=== PATIENT | female | born 1930 | race Caucasian/White ===

== ENCOUNTER 2016-12-13 15:04 | Inpatient (IN) ==
--- NOTE | 2016-12-13 17:56 | Diag Imaging Result Doc PS360 ---
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 There is a hiatal hernia. There are postsurgical changes in the right upper chest. Compared to the previous study of 11/17/2015 this has not changed significantly. IMPRESSION: Stable chest. Electronically signed by Ryder Jamil 12/13/2016 5:54 PM
[2016-12-13] MEDS ORDERED: DUONEB (A & A) INH PRN (18:13)
[2016-12-13] MEDS ORDERED: ZOFRAN IV PRN (18:13)
[2016-12-13] MEDS ORDERED: TYLENOL PO PRN ×2 (18:13→18:15)
[2016-12-13] MEDS ORDERED: VOLTAREN 1% GEL TOP PRN (18:15)
[2016-12-13 18:19] LABS: MANUAL DIFF NEEDED? NO
[2016-12-13 18:23] LABS: BASO% 0.4 % (0.0-0.8); EOS# 0.09 X1000 (0.0-0.7); EOS% 0.9 % (0.0-10.0); HEMATOCRIT 34.4 % (37.0-47.0); HEMOGLOBIN 10.9 g/dL (12.0-16.0); IMM GRAN# 0.08 X1000 (0.0-0.04); IMM GRAN% 0.8 % (0.0-0.5); LYMPH# 2.54 X1000 (1.2-3.4); LYMPH% 24.3 % (20.5-51.1); MCH 28.8 PG (27-31); MCHC 31.7 g/dL (33-37); MCV 90.8 FL (81-99); MONO# 0.69 X1000 (0.11-0.59); MONO% 6.6 % (1.7-9.3); MPV 9.9 FL (7.4-10.4); PLT 250 X1000 (130-400); RBC 3.79 XMIL (4.2-5.4)
[2016-12-13 18:47] LABS: AGAP 9; ALBUMIN 3.5 g/dL (3.5-5.0); ALKALINE PHOSPHATASE 103 U/L (32-104); BUN 17 mg/dL (8-22); CALCIUM 9.3 mg/dL (8.8-10.2); CHLORIDE 99 mmol/L (98-107); COSMO 272; GOT 9 U/L (10-30); GPT 6 U/L (10-36); POTASSIUM 4.3 mmol/L (3.5-5.1); SODIUM 135 mmol/L (136-145); TCO2 27 mmol/L (25-35); TOTAL BILIRUBIN < 0.15 mg/dL (0.20-1.00); TOTAL PROTEIN 6.4 g/dL (6.3-8.3)
[2016-12-13] MEDS: DUONEB (A & A) INH SCH ×2 (19:16→23:50)
[2016-12-13] MEDS ORDERED: DOXYCYCLINE 100 MG in NS 250 ML IV SCH (20:00)
[2016-12-13] MEDS ORDERED: CARAFATE PO SCH (21:00)
[2016-12-13] MEDS: ELIQUIS PO SCH (21:05)
[2016-12-13] MEDS: MIRAPEX PO SCH (21:05)
[2016-12-13] MEDS: ULTRAM PO SCH (21:05)
[2016-12-13] MEDS: CYMBALTA PO SCH (21:06)
[2016-12-13] MEDS: ZOCOR PO SCH (21:06)
[2016-12-13] MEDS: KLONOPIN PO SCH (21:06)
[2016-12-13] MEDS: SINEMET 25/100 PO SCH (21:06)
[2016-12-13] MEDS: ROCEPHIN 1 GM/NS 1 GM/50 ML IVPB IV SCH ×3 (22:42→23:42)
[2016-12-13] MEDS: NS 1,000 ML IV SCH ×3 (22:42→23:43)
[2016-12-14] MEDS: DUONEB (A & A) INH SCH ×6 (03:44→23:29)
[2016-12-14 05:05] LABS: MANUAL DIFF NEEDED? NO
[2016-12-14] MEDS: SINEMET 25/100 PO SCH ×3 (05:25→21:14)
[2016-12-14] MEDS: ELIQUIS PO SCH ×2 (05:25→17:57)
[2016-12-14 05:35] LABS: BASO% 0.3 % (0.0-0.8); EOS# 0.11 X1000 (0.0-0.7); EOS% 1.9 % (0.0-10.0); HEMATOCRIT 30.7 % (37.0-47.0); HEMOGLOBIN 9.6 g/dL (12.0-16.0); IMM GRAN# 0.06 X1000 (0.0-0.04); LYMPH# 2.08 X1000 (1.2-3.4); LYMPH% 36.4 % (20.5-51.1); MCH 28.2 PG (27-31); MCHC 31.3 g/dL (33-37); MCV 90.3 FL (81-99); MONO# 0.57 X1000 (0.11-0.59); MPV 9.8 FL (7.4-10.4); NEUT% 50.4 % (42.2-75.2); PLT 217 X1000 (130-400)
[2016-12-14 05:59] LABS: AGAP 8; ALKALINE PHOSPHATASE 80 U/L (32-104); BUN 13 mg/dL (8-22); CALCIUM 8.8 mg/dL (8.8-10.2); CHLORIDE 106 mmol/L (98-107); COSMO 280; GOT 7 U/L (10-30); GPT < 5 U/L (10-36); MAGNESIUM 2.2 mg/dL (1.5-2.7); POTASSIUM 3.7 mmol/L (3.5-5.1); SODIUM 140 mmol/L (136-145); TCO2 26 mmol/L (25-35); TOTAL BILIRUBIN < 0.15 mg/dL (0.20-1.00); TOTAL PROTEIN 5.3 g/dL (6.3-8.3)
[2016-12-14] MEDS ORDERED: DOXYCYCLINE 100 MG in NS 250 ML IV SCH (07:51)
--- NOTE | 2016-12-14 08:24 | PROGRESS NOTE ---
DATE: 12/14/2016 SUBJECTIVE: Patient notes that she is feeling a little bit better. Still having cough, congestion, sometimes productive. Denies any chest pain or palpitations. PHYSICAL EXAMINATION: Vital Signs: Temperature 98, pulse 79, respiratory rate 18, BP 143/73 to 188/87, saturation 100% on room air. General: Patient is awake, alert, currently in no real respiratory distress. She is pleasant to talk with. Lying flat in the bed. She is in mild respiratory distress with a productive cough. HEENT: Normocephalic, atraumatic. KAYLIN. Neck: Supple. CV: Regular rate. Chest: Positive rhonchi. Occasional wheezing. No crackles. Abdomen: Soft and nondistended. Extremities: Moves all extremities. Neurologic: No changes. ASSESSMENT: 1. Chronic obstructive pulmonary disease with mild exacerbation. 2. Acute bronchitis. 3. Hypertension. 4. Chronic anxiety and depression. 5. Restless legs. 6. High cholesterol. PLAN: We will continue patient's current medications. We will add Acapella treatments. We will change doxycycline to p.o. at this point. We will add Solu-Medrol and we will follow. cc: Romero Davis MD
[2016-12-14] MEDS: SOLU-MEDROL IV SCH ×2 (08:58→16:16)
[2016-12-14] MEDS: VITAMIN D PO SCH (08:58)
[2016-12-14] MEDS: DOXYCYCLINE PO SCH ×2 (08:59→21:14)
[2016-12-14] MEDS: LOPRESSOR PO SCH (08:59)
[2016-12-14] MEDS: CARAFATE PO SCH ×4 (08:59→21:14)
[2016-12-14] MEDS: PRILOSEC PO SCH (08:59)
[2016-12-14] MEDS: CYMBALTA PO SCH ×2 (08:59→21:14)
[2016-12-14] MEDS: ICAR-C PLUS PO SCH (08:59)
[2016-12-14] MEDS: ABILIFY PO SCH (08:59)
[2016-12-14] MEDS: ASPIRIN PO SCH (09:00)
[2016-12-14] MEDS: ULTRAM PO SCH ×2 (09:00→21:14)
[2016-12-14] MEDS: KLONOPIN PO SCH ×2 (09:00→21:14)
[2016-12-14] MEDS: NS 1,000 ML IV SCH ×2 (09:11→14:18)
[2016-12-14 14:57] LABS: URINE CULTURE PL NEEDED? NO
[2016-12-14 15:19] LABS: BILIRUBIN URINE NEGATIVE (NEGATIVE); BLOOD URINE NEGATIVE (NEGATIVE); CLARITY CLEAR (CLEAR); COLOR YELLOW; GLUCOSE URINE NEGATIVE (NEGATIVE); LEUKOCYTES URINE NEGATIVE (NEGATIVE); NITRITE URINE NEGATIVE (NEGATIVE); PH URINE 6.5; PROTEIN URINE NEGATIVE (NEGATIVE); SP GRAVITY URINE 1.005; URINE SOURCE CLEAN CATCH; UROBILINOGEN URINE NORMAL
[2016-12-14 15:20] LABS: URINE EPITHELIAL CELLS <10 /HPF (<10); URINE RBC <10 /HPF (<10); URINE WBC <10 /HPF (<10)
[2016-12-14] MEDS: ROCEPHIN 1 GM/NS 1 GM/50 ML IVPB IV SCH (17:57)
[2016-12-14] MEDS: ZOCOR PO SCH (21:14)
[2016-12-14] MEDS: MIRAPEX PO SCH (21:14)
[2016-12-15] MEDS: SOLU-MEDROL IV SCH ×3 (01:02→15:28)
[2016-12-15] MEDS: DUONEB (A & A) INH SCH ×4 (03:39→15:22)
[2016-12-15] MEDS: NS 1,000 ML IV SCH (04:35)
[2016-12-15] MEDS: PRILOSEC PO SCH (06:34)
[2016-12-15] MEDS: CARAFATE PO SCH ×3 (06:34→15:29)
[2016-12-15] MEDS: ELIQUIS PO SCH (06:34)
[2016-12-15] MEDS: SINEMET 25/100 PO SCH ×2 (06:34→15:28)
--- NOTE | 2016-12-15 08:21 | DISCHARGE SUMMARY ---
ADMISSION DATE: 12/13/2016 DISCHARGE DATE: 12/15/2016 DISCHARGE DIAGNOSES: 1. Shortness of breath, improved. 2. Chronic obstructive pulmonary disease with exacerbation, improved. 3. Anemia of chronic disease, stable. 4. Chronic anxiety. 5. Chronic depression. 6. Chronic reflux. 7. High cholesterol. CONSULTATIONS: None. PROCEDURES: None. BRIEF HOSPITAL COURSE: The patient is an 86-year-old female who was admitted as noted in the HPI, treated in the usual fashion. Thankfully, she had an uneventful hospital course. She was placed on antibiotics, steroids, oxygen, breathing treatments. She continued to improve. On discharge, she was awake, alert. She was in no real distress. She was able to ambulate the gallardo without much difficulty DISPOSITION: The patient will be discharged home. DISCHARGE MEDICATIONS: She will continue her home medications of: 1. Eliquis 5 mg twice a day. 2. Abilify. 3. Sinemet. 4. Klonopin. 5. Cymbalta. 6. Metoprolol. 7. Mirapex. 8. Zocor. She will go home on: 1. Medrol Dosepak. 2. Doxycycline 100 mg twice a day for another 7 days. 3. Omnicef. FOLLOWUP: She will follow up outpatient with primary care in 1 week. cc: Romero Davis MD
[2016-12-15] MEDS: ULTRAM PO SCH (09:15)
[2016-12-15] MEDS: KLONOPIN PO SCH (09:15)
[2016-12-15] MEDS: CYMBALTA PO SCH (09:16)
[2016-12-15] MEDS: ABILIFY PO SCH (09:16)
[2016-12-15] MEDS: LOPRESSOR PO SCH (09:16)
[2016-12-15] MEDS: DOXYCYCLINE PO SCH (09:16)
[2016-12-15] MEDS: ASPIRIN PO SCH (09:16)
[2016-12-15] MEDS: ICAR-C PLUS PO SCH (09:16)
[2016-12-15] MEDS: VITAMIN D PO SCH (09:16)
[2016-12-15 09:24] VITALS: BP 133/62
--- NOTE | 2016-12-19 17:03 | HISTORY AND PHYSICAL ---
CHIEF COMPLAINT: Cough. HISTORY OF PRESENT ILLNESS: The patient is an 86-year-old female who has a known recent history of pneumonia. She presented to the clinic with increased cough, congestion. Notes that she has been taking antibiotics, but this had not been helpful. States the cough has continued to worsen. She has had increased shortness of breath, increased dyspnea on exertion. Denies any true fevers or chills. States she has had a nonproductive cough. Does wake her up at night. PAST MEDICAL HISTORY: Significant for: 1. Artificial pig valve, replaced a few years ago for aortic stenosis. 2. Left total knee arthroscopy. 3. Status post cholecystectomy in the past. 4. Hysterectomy. 5. Tonsillectomy. 6. Hypertension. 7. High cholesterol. 8. Hypothyroidism. ALLERGIES: Sulfa. MEDICATIONS: I do not have a complete active list, although she is on: 1. Eliquis. 2. Sinemet. 3. Cymbalta. 4. Hydrocodone. 5. Zocor. 6. Prilosec. 7. Synthroid. We will confirm doses when pharmacy opens. FAMILY HISTORY: Noncontributory. SOCIAL HISTORY: The patient lives at home. Her primary care is at [facility]. REVIEW OF SYSTEMS: As noted above. Positive increased cough, congestion, increased shortness of breath, increased work of breathing. Denies any true fevers or chills. Denies any orthopnea. Denies edema. Denies dysuria. No frequency, constipation, melena, or hematochezia. OBJECTIVE: Vital Signs: Reviewed. General: She is awake, alert, oriented. She is in mild respiratory distress. Pleasant to talk with. Neck: Supple. Cardiovascular: Regular rate. Chest: Decreased breath sounds, but equal bilaterally. No apparent wheezing. Abdomen: Soft. Positive bowel sounds. Extremities: Moves all extremities. Neurologic: No focal changes. Skin: Warm and dry. No rashes. DIAGNOSTIC DATA: Pending. ASSESSMENT: 1. Pneumonia. 2. Hypertension. 3. Chronic obstructive pulmonary disease with exacerbation. 4. Hypothyroidism. 5. Parkinson's. 6. Depression. 7. Others. PLAN: We will admit the patient to the hospital. IV fluids, antibiotics, breathing treatments. We will continue to follow. Further orders as needed. cc: Romero Davis MD
== END 2016-12-15 15:45 | disposition home health service (06) ==
LOC: P.DIRADM 15:04 → P.MEDSURG 15:53
PROVIDERS: ATTEND Family Medicine

== ENCOUNTER 2017-01-06 08:38 | Inpatient (IN) ==
[2017-01-06] MEDS ORDERED: NS 1,000 ML IV ONE ×2 (09:10→19:55)
[2017-01-06] MEDS ORDERED: ZOFRAN IV ONE (09:10)
--- NOTE | 2017-01-06 09:43 | ED EKG INTERP ---
This chart was entered by Brenda Marin Scribe, acting as scribe for Octavio Piedra MD. EKG Interpretation - EKG Time of EKG reading by physician:: 09:04 EKG Read and Signed by:: Octavio Piedra EKG Interpretation (*Must complete 3 of following elements*): Normal (sinus rhythm with premature atrial complexes; OTHERWISE NORMAL) Rate: 82 Rhythm: Sinus rhythm with premature atrial complexes [place]: normal Attestation - Physician/ KENNY Attestation Patient care was provided by Advanced Practice Provider:: No The physician spent face to face time with patient:: Yes Advanced Practice Provider documentation review:: Supervising physician onsite and consulted in the evaluation and care of this patient. The physician did have a face to face encounter with the patient. This chart was documented by the indicated scribe, (Brenda Marin Scribe) and accurately reflects the services I performed and decisions made by me, Octavio Piedra MD, as attested by the provider's signature.
[2017-01-06 09:56] LABS: MANUAL DIFF NEEDED? NO
--- NOTE | 2017-01-06 10:02 | Diag Imaging Result Doc PS360 ---
FLAT/UPRIGHT ABD/1 VIEW CHEST - 01/06/2017 INDICATION: CP/Abd pain TECHNIQUE: Three views COMPARISON: 12/13/2016 FINDINGS: Stable aortic valve prosthesis. Stable surgical clips in the right axilla. Heart size is top normal. No focal infiltrates, pneumothorax, or pleural effusion. There is a large chunk of stool in the right colon. This measures 16 x 10 cm. No small bowel obstruction or free air. No abnormal calcifications. There are cholecystectomy clips. IMPRESSION: Fecal impaction of the ascending colon. Electronically signed by Reza Wheeler 01/06/2017 9:59 AM
[2017-01-06 10:18] LABS: AMYLASE 56 U/L (20-200); LIPASE 29 U/L (13-60)
--- NOTE | 2017-01-06 10:18 | EKG Report ---
Test Performed on : 01/06/2017 09:04:39 AM Test Reason : cp Blood Pressure : / mmHG Vent. Rate : 082 BPM Atrial Rate : 082 BPM P-R Int : 154 ms QRS Dur : 082 ms QT Int : 380 ms P-R-T Axes : -27 049 079 degrees QTc Int : 443 ms Sinus rhythm. with premature atrial complexes. Otherwise normal ECG When compared with ECG of 17-NOV-2015 12:09, premature atrial complexes. are now present Unconfirmed Result
[2017-01-06 10:21] LABS: BASO% 0.8 % (0.0-0.8); EOS# 0.26 X1000 (0.0-0.7); EOS% 5.2 % (0.0-10.0); HEMATOCRIT 19.4 % (37.0-47.0); IMM GRAN# 0.08 X1000 (0.0-0.04); IMM GRAN% 1.6 % (0.0-0.5); LYMPH# 1.22 X1000 (1.2-3.4); LYMPH% 24.4 % (20.5-51.1); MCH 28.4 PG (27-31); MCHC 30.9 g/dL (33-37); MCV 91.9 FL (81-99); MONO# 0.42 X1000 (0.11-0.59); MONO% 8.4 % (1.7-9.3); MPV 9.7 FL (7.4-10.4); NEUT% 59.6 % (42.2-75.2); PLT 276 X1000 (130-400); RBC 2.11 XMIL (4.2-5.4)
[2017-01-06] MEDS ORDERED: ZOFRAN ONE (11:36)
[2017-01-06 11:51] LABS: OCCULT BLOOD 1 POSITIVE (NEGATIVE)
[2017-01-06 12:39] LABS: POTASSIUM 3.7 mmol/L (3.5-5.1); SODIUM 134 mmol/L (136-145)
[2017-01-06 12:40] LABS: AGAP 14; ALBUMIN 3.5 g/dL (3.5-5.0); ALKALINE PHOSPHATASE 91 U/L (32-104); BUN 11 mg/dL (8-22); CALCIUM 8.8 mg/dL (8.8-10.2); CHLORIDE 98 mmol/L (98-107); COSMO 267; GOT 9 U/L (10-30); GPT 6 U/L (10-36); TCO2 23 mmol/L (25-35)
[2017-01-06 12:54] LABS: URINE CULTURE PL NEEDED? NO
[2017-01-06 13:08] LABS: BILIRUBIN URINE NEGATIVE (NEGATIVE); BLOOD URINE NEGATIVE (NEGATIVE); CLARITY CLEAR (CLEAR); COLOR YELLOW; GLUCOSE URINE NEGATIVE (NEGATIVE); LEUKOCYTES URINE NEGATIVE (NEGATIVE); NITRITE URINE NEGATIVE (NEGATIVE); PROTEIN URINE NEGATIVE (NEGATIVE); UROBILINOGEN URINE NORMAL
[2017-01-06 13:11] LABS: URINE CAST NONE SEEN /LPF; URINE CRYSTAL NONE SEEN /HPF; URINE EPITHELIAL CELLS <10 /HPF (<10); URINE RBC <10 /HPF (<10); URINE SOURCE CLEAN CATCH; URINE WBC <10 /HPF (<10)
--- NOTE | 2017-01-06 13:28 | Diag Imaging Result Doc PS360 ---
CT ABD/PELVIS W/ IV CONT ONLY - 01/06/2017 INDICATION: Abd pain with anemia TECHNIQUE: A CT dose reduction protocol was used. COMPARISON: None FINDINGS: There are hazy patchy infiltrates in the lung bases, nonspecific. There is also COPD. There is an aortic valve replacement. There is cardiomegaly. There are cholecystectomy clips. The solid abdominal organs are normal. No bowel obstruction or inflammation. Moderate constipation of the proximal colon. There is significant diverticulosis of the sigmoid colon. Urinary bladder and rectum are normal. There are laminectomy and fusion changes of the lower lumbar spine. There is advanced scoliosis and degeneration. No acute bony lesions. IMPRESSION: 1. Cardiomegaly and nonspecific hazy infiltrates in the lung bases. Pulmonary edema is suspected. 2. Diverticulosis coli. 3. Constipation. Electronically signed by Reza Wheeler 01/06/2017 1:25 PM
--- NOTE | 2017-01-06 13:42 | PROVIDER DOCUMENTATION ---
This chart was entered by Brenda Marin Scribe, acting as scribe for Octavio Piedra MD. HPI-General Adult - General Chief Complaint: Weakness Stated Complaint: WEAKNESS Time Seen by Provider: 01/06/17 08:52 Source: patient, family Allergies/Adverse Reactions: Patient Allergies Allergy/AdvReac Type Severity Reaction Status Date / Time Sulfa (Sulfonamide Allergy HIVES Verified 01/06/17 08:47 Antibiotics) Home Medications: Home Medication List Medication Instructions Recorded Confirmed Last Taken Type Aripiprazole [Abilify] 5 mg PO DAILY 10/04/13 12/13/16 12/13/16 09:00 History Carbidopa/Levodopa [Carbidopa-Levo 1 each PO TID 04/10/14 12/13/16 12/13/16 09: 00 History 25-100 Tab] Clonazepam [Klonopin] 0.5 mg PO BID 11/17/15 12/13/16 12/13/16 09:00 History Duloxetine HCl [Cymbalta] 30 mg PO BID 11/17/15 12/13/16 12/13/16 09:00 History Omeprazole 40 mg PO DAILY 11/17/15 12/13/16 12/13/16 09:00 History SIMVAstatin [Zocor] 10 mg PO QHS 11/17/15 12/13/16 12/12/16 21:00 History Iron Carbonyl/Vit C/Vit B12/FA 1 each PO DAILY #30 tablet 11/18/15 12/13/1611/22 09:00 Rx [Icar-C Plus] Acetaminophen [Tylenol Extra 500 mg PO Q6H PRN PRN 04/29/16 12/13/16 Unknown History Strength] Apixaban [Eliquis] 5 mg PO Q12H 04/29/16 12/13/16 12/13/16 09:00 History Aspirin 81 mg PO DAILY 04/29/16 12/13/16 12/13/16 09:00 History Cholecalciferol (Vitamin D3) 5,000 unit PO DAILY 04/29/16 12/13/16 12/13/16 09: 00 History [Vitamin D3] Diclofenac 1% Gel [Voltaren 1% Gel] 2 g TOP Q6H PRN PRN 04/29/16 12/13/16 Unknown History Metoprolol [Lopressor] 25 mg PO DAILY #30 tablet 04/29/16 12/13/16 12/13/16 09: 00 Rx Pramipexole [Mirapex] 0.5 mg PO QHS 04/29/16 12/13/16 12/12/16 21:00 History Sucralfate [Carafate] 1 gm PO 4XDAY 04/29/16 12/13/16 Unknown History Tramadol HCl [Ultram] 50 mg PO BID 04/29/16 12/13/16 12/13/16 09:00 History CefDINIR [Omnicef] 300 mg PO BID #10 capsule 12/15/16 Unknown Rx Doxycycline 100 mg PO BID #10 tablet 12/15/16 Unknown Rx Methylprednisolone [Medrol Dosepak] 4 mg PO DIRECTED #1 package 12/15/16 Unknown Rx - History of Present Illness -Gen Adult Nature of Presenting Problems: 86 yo WF presents to ED with cc of generalized weakness, near-syncope on standing, and abdominal pain. Pt reports weakness and near-syncope for a few days and abdominal pain for 2-3 weeks, following discharge from this hospital after a stay for pneumonia. Pt additionally reports that she felt a sharp chest pain this morning when she moved a particular way. Pt is in treatment with her family doctor, who reportedly had a sonogram scheduled for her today. Daughter- in-law reports pt is typically capable of routine self-care and that pt lives with her family to help with more rigorous activities of daily living. Pt denies any urinary sx, diarrhea, or constipation. Pt continues to report nausea despite taking zofran, and she denies vomiting. Upon arrival to ED, pt is a & o x 3 and in no apparent distress. Severity: reports: mild, moderate Onset/Duration: reports: gradual, other (weakness, near-syncope for a few days; abdominal pain for 2-3 weeks) Timing: reports: still present Context/Activities at Onset: reports: other (abdominal pain began after hospital stay for pneumonia; near-syncope occurs upon standing) Modifying Factors: improves with: lying down. worse with: antacids, other medication Associated Symptoms: reports: chest pain, dizziness, fatigue, malaise, nausea, weakness. denies: anxiety, arm pain, back/neck pain, constipation, diaphoresis , diarrhea, fever/chills, genitourinary problems, shortness of breath, vomiting Similar Symptoms Previously?: Yes Recently seen or treated by another doctor?: Yes (Saw family practitioner for sonogram for abdominal pain) Review of Systems - Adult - REVIEW OF SYSTEMS - ADULT Constitutional: reports: fatique Eyes: reports: no symptoms reported. denies: blurred vision, double vision Ears, Nose, Mouth & Throat: reports: no symptoms reported. denies: ear pain, sinus problem Cardiovascular: reports: chest pain (on certain movements), other (near-syncope on standing). denies: edema, palpitations Respiratory: reports: no symptoms reported. denies: cough, shortness of breath Gastrointestinal: reports: abdominal pain, nausea. denies: constipation, diarrhea, vomiting Genitourinary: reports: no symptoms reported. denies: dysuria, frequency, flank pain, frequent UTI's, hematuria, hesitency, urgency Musculoskeletal: reports: muscle weakness Integumentary: reports: no symptoms reported. denies: hives, rash Neurological: reports: dizziness/vertigo, other (near-syncope on standing) Psychiatric: reports: no symptoms reported. denies: anxiety, depression Endocrine: reports: no symptoms reported. denies: cold intolerance, heat intolerance Hematologic/Lymphatic: reports: no symptoms reported. denies: low blood count, prolonged bleeding Allergic/Immunologic: reports: no symptoms reported. denies: allergic reactions , food allergy All Other Systems: Reviewed and Negative Past History - Adult - PAST MEDICAL HISTORY-ADULT Review of Records: reports: Old Records Reviewed, Nursing Assessment Review, Medications Reviewed Major Childhood Illnesses: reports: denies history Cardiovascular: reports: HTN, heart valve problem (aortic valve replacement ) Gastrointestinal: reports: GERD Psychiatric: reports: anxiety Endocrine/Immune: reports: thyroid disorder - PRIOR SURGERIES/PROCEDURES Surgical/Procedure History: reports: cholecystectomy, orthopedic (extremity) ( left foot Sx), back/neck (back Sx), other (heart valve replaced in 2012) - PRIOR HOSPITALIZATIONS Prior Hospitalizations: reports: none - IMMUNIZATION STATUS Childhood Immunizations: See Nurse Assessment Flu Vaccine: UTD - FAMILY HISTORY Family History: reviewed, not pertinent Physical Exam-General - PHYSICAL EXAM-ADULT Initial Vital Signs Reviewed: Yes - CONSTITUTIONAL General Appearance: appears well, alert, no apparent distress - EYES Eyes: PERRL/EOMI, pink conjunctivae - HEAD, EARS, NOSE, MOUTH & THROAT HENMT: normocephalic/atraumatic, moist mucous membranes - NECK Neck: non-tender, full range of motion, supple - RESPIRATORY Respiratory: chest non-tender, lungs clear, normal breath sounds - CARDIOVASCULAR Cardiovascular: normal peripheral pulses, regular rate, rhythm, no edema - GASTROINTESTINAL (ABDOMEN) Abdominal Exam: normal bowel sounds, soft, tenderness (very mild epigastric; very mild suprapubic) - LYMPHATIC Lymphatic: no adenopathy - MUSCULOSKELETAL Back Exam: normal inspection Extremity: normal range of motion, non-tender - SKIN Integumentary: normal color, normal turgor - NEUROLOGIC Neurologic: grossly normal, no motor/sensory deficits - PSYCHIATRIC Psych/Mental Status: normal mood/affect, normal thought content, normal thought process, oriented x 3 Progress - PLAN OF CARE/RESULTS Progress/Plan/Lab Results: Vital Signs - 8 hr 01/06/17 08:45 Temperature 96.9 F L Pulse Rate 93 H Respiratory Rate 18 Blood Pressure 101/72 Result Diagrams: 01/06/17 09:50 01/06/17 09:50 - XRAY 1 XRAY Study: Chest, Abdomen Impression: Abnormal ( FINDINGS: Stable aortic valve prosthesis. Stable surgical clips in the right axilla. Heart size is top normal. No focal infiltrates, pneumothorax, or pleural effusion. There is a large chunk of stool in the right colon. This measures 16 x 10 cm. No small bowel obstruction or free air. No abnormal calcifications. There are cholecystectomy clips.) XRAY Interpretation: Fecal impaction of the ascending colon (per Dr. Wheeler, radiology) - CT/MRI 1 CT Study: Abdomen, Pelvis Impression: Abnormal CT Results: Cardiomegaly/pulmonary edema/constipation/diverticuli - CONSULTS/PCP/HOSPITALIST Notification #1 *Consult/PCP/Hospitalist*: Dr. Dobbins Time Discussed: 13:39 Consult Disposition: Will see in ED, Admit Departure - Departure Date of Disposition Decision: 01/06/17 Time of Disposition Decision: 13:40 DIAGNOSIS: Anemia, Weakness, Pulmonary edema, Lower GI bleed Disposition: ADMITTED INPATIENT 09 Certified Medical Emergency: Emergent Condition: Stable Referrals and Follow-Ups: Mariana Eubanks [Primary Care Provider] - - Critical Care Note This patient required my direct & personal management of CC.: Yes Total Time (mins): 35 Critical Care Statement: This patient required my direct personal management to treat or rule out processes, the absence of which, could potentiallly result in sudden, clinically significant life or limb threatening deterioration. Attestation - Physician/ KENNY Attestation Patient care was provided by Advanced Practice Provider:: No The physician spent face to face time with patient:: Yes Advanced Practice Provider documentation review:: Supervising physician onsite and consulted in the evaluation and care of this patient. The physician did have a face to face encounter with the patient. This chart was documented by the indicated scribe, (Brenda Marin Scribe) and accurately reflects the services I performed and decisions made by me, Octavio Piedra MD, as attested by the provider's signature.
[2017-01-06] MEDS ORDERED: REQUIP PO ONE (15:38)
[2017-01-06] MEDS: PROTONIX 80 MG in NS 80 ML IV SCH (15:42)
[2017-01-06] MEDS ORDERED: NS 250 ML ONE (16:19)
--- NOTE | 2017-01-06 17:35 | HISTORY AND PHYSICAL ---
PRIMARY CARE PHYSICIAN: JON Mora at [facility]. CHIEF COMPLAINT: Abdominal pain, black tarry stools, and generalized weakness for the past 2-3 weeks, that has progressively worsened. HISTORY OF PRESENTING ILLNESS: This is an 86-year-old, female who presents to [facility] ER with complaints of generalized abdominal pain , nausea, generalized weakness, some black tarry stools for the past 2-3 weeks that has progressively worsened. Denied any bright red blood in her stool. Denied any vomiting. Denied any constipation or diarrhea. On arrival to the emergency room, her laboratory data showed a hemoglobin of 6 with a hematocrit of 19.4. Plasma lactate was 2.4. Stool for occult blood was positive. Abdomen x-ray showed a fecal impaction of the ascending colon. CT of the abdomen and pelvis showed diverticulosis coli, constipation and cardiomegaly. Pulmonary edema was suspected with nonspecific hazy infiltrates in the lung bases. EKG showed sinus rhythm at 82. So, she is being admitted to the [facility] for further evaluation and treatment. PAST MEDICAL HISTORY: Aortic stenosis, GERD, hypertension, hyperlipidemia and hypothyroidism. PAST SURGICAL HISTORY: Left TKA, cholecystectomy, hysterectomy and a tonsillectomy. FAMILY HISTORY: Noncontributory. SOCIAL HISTORY: She currently lives at home. Denies any tobacco, alcohol, or illicit drug use. ALLERGIES: Sulfa drugs. HOME MEDICATIONS: We will obtain a current list of her home medications. She is currently n.p.o. at this time and so they will be restarted once she has been cleared by GI. LABORATORY DATA: Showed a white blood cell count of 4.99, hemoglobin of 6, hematocrit 19.4, platelets of 276. Sodium of 134, potassium 3.7, chloride 98, CO2 of 23, BUN of 11, creatinine of 0.8. Magnesium of 2. Cardiac enzymes were negative. ProBNP of 250. Plasma lactate of 2.4, amylase of 56, lipase of 29. Urinalysis was negative. Stool for occult blood was positive. Abdomen x-ray showed a fecal impaction of the ascending colon. CT of the abdomen and pelvis showed cardiomegaly with nonspecific hazy infiltrate in the lung base with pulmonary edema. Suspected diverticulosis coli and constipation. REVIEW OF SYSTEMS: She denied any fever, chills, blurred vision, dizziness, chest pain, coughing, shortness of breath. She is positive for abdominal pain, generalized. Nausea, black tarry stools, generalized weakness. Denies any burning or hurting with urination. She is also positive for constipation. PHYSICAL EXAMINATION: VITAL SIGNS: On arrival, she had a temperature of 96.9, pulse 93, respirations 18, blood pressure of 101/72, saturating 97% on room air. GENERAL: This is an 86-year-old female who is lying in the bed, and answers questions appropriately. HEENT: Normocephalic and atraumatic. Pupils are equal, round, reactive to light. Extraocular movements are intact. The oropharynx and nares are clear. NECK: Supple. LUNGS: Clear to auscultation bilaterally with equal lung expansion and chest wall movement. HEART: With regular rate and rhythm. No murmurs, rubs, or gallops. ABDOMEN: Soft. There is some mild tenderness to palpation. Bowel sounds are present x4 quadrants. EXTREMITIES: No clubbing, cyanosis, or edema. NEUROLOGICAL: The cranial nerves 2-12 appear grossly intact. ASSESSMENT: 1. Lower gastrointestinal bleed. 2. Anemia. 3. Generalized weakness. 4. Constipation. PLAN: She will be admitted to [facility]. She will be held n.p.o. at this time. We will consult GI. We will transfuse 2 units of packed red blood cells. Place on Protonix 40 mg IV q.12. She is on a Protonix drip and this will continue for 72 hours then she will be converted to Protonix 40 mg IV q.12. Lactulose 30 mL p.o. b.i.d. We will recheck a CBC and a BMP in the a.m. and further orders after seen by GI. Dictated by JON Lewis for Deepak Dobbins MD cc: JON Lewis MD Kim Harbin, CRNP pt examined, seen face to face, has acute gi bleed, mostly likely upper, black stool on rectal exam, her abdominal exam is nontender, she will need PPI, and egd evaluation at ther very least, she has had bleeding episodes, previously without a clear diagnosis including capsule endoscopy, may have consider a bleeding scan [facility]
[2017-01-06] MEDS ORDERED: ZOFRAN IV PRN (19:55)
[2017-01-06] MEDS ORDERED: LASIX IV SCH (19:55)
[2017-01-06] MEDS ORDERED: NS 500 ML ONE (21:21)
[2017-01-06 21:54] LABS: INR 1.03; PROTIME 10.8 Seconds (9.2-11.7); PTT 29.7 Seconds (22.0-36.0)
[2017-01-06] MEDS: SINEMET 25/100 PO SCH (22:57)
[2017-01-06] MEDS: LACTULOSE PO SCH (22:57)
[2017-01-06] MEDS: ULTRAM PO PRN (23:24)
[2017-01-07] MEDS: PROTONIX 80 MG in NS 80 ML IV SCH ×3 (05:32→18:53)
[2017-01-07 06:44] LABS: MANUAL DIFF NEEDED? NO
[2017-01-07 07:03] LABS: CALCIUM 9.2 mg/dL (8.8-10.2); POTASSIUM 3.9 mmol/L (3.5-5.1)
[2017-01-07 07:04] LABS: BASO% 0.7 % (0.0-0.8); EOS# 0.37 X1000 (0.0-0.7); EOS% 6.7 % (0.0-10.0); HEMATOCRIT 31.7 % (37.0-47.0); HEMOGLOBIN 10.2 g/dL (12.0-16.0); IMM GRAN# 0.11 X1000 (0.0-0.04); LYMPH# 1.25 X1000 (1.2-3.4); LYMPH% 22.8 % (20.5-51.1); MCH 28.3 PG (27-31); MCHC 32.2 g/dL (33-37); MCV 88.1 FL (81-99); MONO% 9.1 % (1.7-9.3); MPV 9.5 FL (7.4-10.4); NEUT% 58.7 % (42.2-75.2); PLT 321 X1000 (130-400)
--- NOTE | 2017-01-07 14:54 | PROGRESS NOTE ---
DATE: 01/07/2017 SUBJECTIVE: This patient states that she feels better but she is still complaining of some abdominal discomfort. Her daughter is at the bedside. All their questions were answered. She has been having black stools and she has been having symptoms for the past 2 weeks, fatigue, dizziness and generalized weakness. She was admitted and her hemoglobin was around 6 and after transfusion now is 10.2. Gastroenterology Department has been consulted. If they are not planning to do any kind of procedure today I will put this patient on a liquid diet and I will restart some of her medications. Of note, this patient has been taking iron and she was told that the reason why she has been having black stools is secondary to her medications. This patient also has a bioprosthetic valve, and she has been on anticoagulation with Eliquis. Also she has been on aspirin. These treatments have been held because probably she will need to be scoped. OBJECTIVE: Vital Signs: Temperature 98.6 degrees, pulse 92, respiratory rate 21, blood pressure 132/70, O2 saturation 93 on room air. HEENT: Head normocephalic. No trauma. PERRLA. Neck: Supple. No JVD. No masses. Central trachea. Chest: Clear to auscultation. No wheezing. No rales. Abdomen: Soft, mild tenderness to palpation at the level of the epigastric area and periumbilical area and also left lower quadrant. No signs of peritoneal irritation. Extremities: No edema. No clubbing. No cyanosis. Neurological: The patient is alert and oriented x3. No focal neurological deficits. LABORATORY: WBC 5.4, hemoglobin 10.2, hematocrit 31.7, platelets 321,000. Sodium 140, potassium 3.9, chloride 98, bicarbonate 29, BUN 9, creatinine 0.9, glucose 103, calcium 9.2. ASSESSMENT AND PLAN: 1. Likely upper GI bleed. This patient has been transfused because she came in with a hemoglobin of 6 and also symptoms related to her severe anemia. Now the hemoglobin is 10.2, probably this patient will need to be scoped. Gastroenterology Department has been consulted. If they are not going to do any procedure today, I will put this patient on a clear liquid diet and I will restart most of her medications. 2. Severe normocytic anemia status post 2 PRBCs. We will continue to monitor the hemoglobin and hematocrit. 3. History of bioprosthetic aortic valve replacement secondary to aortic stenosis, on chronic anticoagulation. This patient has been on Eliquis and even though we do not use too DOAC as anticoagulation for bioprosthetic valve, some experts use this kind of drugs as an alternative but we do have limited evidence. For now, that treatment has been held for possible EGD. 4. Gastroesophageal reflux disease. Continue with PPIs. 5. Hypertension. Blood pressure is stable. Continue to monitor. 6. Hypothyroidism. Continue with the same management. She is on levothyroxine. 7. Generalized weakness likely secondary to severe anemia. 8. Constipation. This patient has been having treatment with iron. We will continue with lactulose p.o. b.i.d. 9. Dyslipidemia. Continue with the same management. cc: Simeon Sin MD
[2017-01-07] MEDS: SINEMET 25/100 PO SCH ×3 (15:52→21:18)
[2017-01-07] MEDS: LACTULOSE PO SCH ×2 (15:52→21:16)
[2017-01-07] MEDS: KLONOPIN PO SCH ×2 (15:53→21:16)
[2017-01-07] MEDS: CYMBALTA PO SCH ×2 (15:53→21:16)
[2017-01-07] MEDS: SYNTHROID PO SCH (15:58)
[2017-01-07] MEDS ORDERED: PROTONIX IV SCH (21:00)
[2017-01-07] MEDS: ULTRAM PO PRN (21:16)
[2017-01-07] MEDS: TYLENOL PO PRN (21:58)
[2017-01-08] MEDS: TYLENOL PO PRN ×2 (02:20→19:33)
[2017-01-08] MEDS: ULTRAM PO PRN ×2 (02:20→19:32)
[2017-01-08] MEDS: PROTONIX 80 MG in NS 80 ML IV SCH ×3 (02:20→22:07)
[2017-01-08 06:51] LABS: MANUAL DIFF NEEDED? NO
[2017-01-08 06:56] LABS: BASO% 0.8 % (0.0-0.8); EOS# 0.33 X1000 (0.0-0.7); EOS% 8.4 % (0.0-10.0); HEMATOCRIT 25.4 % (37.0-47.0); IMM GRAN# 0.05 X1000 (0.0-0.04); IMM GRAN% 1.3 % (0.0-0.5); LYMPH# 1.32 X1000 (1.2-3.4); LYMPH% 33.5 % (20.5-51.1); MCH 27.9 PG (27-31); MCHC 31.5 g/dL (33-37); MCV 88.5 FL (81-99); MONO# 0.52 X1000 (0.11-0.59); MONO% 13.2 % (1.7-9.3); MPV 9.3 FL (7.4-10.4); NEUT% 42.8 % (42.2-75.2); PLT 285 X1000 (130-400); RBC 2.87 XMIL (4.2-5.4)
[2017-01-08 07:19] LABS: AGAP 12; ALBUMIN 3.1 g/dL (3.5-5.0); ALKALINE PHOSPHATASE 84 U/L (32-104); BUN 7 mg/dL (8-22); CALCIUM 8.5 mg/dL (8.8-10.2); CHLORIDE 102 mmol/L (98-107); COSMO 279; GOT 8 U/L (10-30); GPT < 5 U/L (10-36); POTASSIUM 3.6 mmol/L (3.5-5.1); SODIUM 141 mmol/L (136-145); TCO2 27 mmol/L (25-35); TOTAL BILIRUBIN 0.33 mg/dL (0.20-1.00); TOTAL PROTEIN 5.4 g/dL (6.3-8.3)
[2017-01-08] MEDS: CYMBALTA PO SCH ×3 (08:54→22:07)
[2017-01-08] MEDS: KLONOPIN PO SCH ×3 (08:54→22:08)
[2017-01-08] MEDS: LACTULOSE PO SCH ×3 (08:54→22:07)
[2017-01-08] MEDS: SYNTHROID PO SCH (08:54)
[2017-01-08] MEDS: SINEMET 25/100 PO SCH ×3 (08:54→17:09)
[2017-01-08] MEDS: COZAAR PO SCH (08:54)
--- NOTE | 2017-01-08 13:28 | PROGRESS NOTE ---
DATE: 01/08/2017 SUBJECTIVE: This patient states that she is feeling better, but she is still complaining of mild abdominal discomfort. No family member is at the bedside. She received already 2 PRBCs, and the hemoglobin yesterday was 10 and today decreased to 8. Will continue to monitor the hemoglobin and hematocrit pending GI evaluation and recommendations. OBJECTIVE: Vital signs: Temperature 98.2, pulse 73, respiratory rate 21, blood pressure 155/65, oxygen saturation 93 on room air. HEENT: Head normocephalic, no trauma, PATTI. Neck: No JVD, no masses. Central trachea. Chest: Clear to auscultation, no wheezing, no rales. Abdomen: Soft. Mild tenderness to palpation at the level of the epigastric area and periumbilical area. No signs of peritoneal irritation. Extremities: No edema, no clubbing, no cyanosis. Neurological: The patient is alert and oriented x3, no focal neurologic deficits. LABORATORY: WBC 3.9, hemoglobin 8, hematocrit 25.4, platelets 285. Sodium 141, potassium 3.6, chloride 102, bicarbonate 27, BUN 7, creatinine 0.7, glucose 90, calcium 8.5. Albumin 3.1. ASSESSMENT AND PLAN: 1. Upper GI bleed. This patient has been transfused with 2 units because her hemoglobin upon admission was 6. Today, her hemoglobin is 8. Will continue to monitor. Gastroenterology department has been consulted. 2. Severe normocytic anemia status post 2 PRBCs, as above. Will continue to monitor the hemoglobin and hematocrit. 3. History of bioprosthetic aortic valve replacement secondary to aortic stenosis on chronic anticoagulation. This patient has been on Eliquis, and even though we do not use DOAC as anticoagulation for bioprosthetic valves, some experts use these kinds of drugs as an alternative, but we do have limited evidence. For now, that treatment has been held for possible EGD. 4. Gastroesophageal reflux disease (GERD). Continue with PPIs. 5. Hypertension. Blood pressure is stable. Continue to monitor. 6. Hypothyroidism. Continue with levothyroxine. 7. Generalized weakness likely secondary to severe anemia. 8,.Constipation. Continue with lactulose p.o. b.i.d. 9. Dyslipidemia. Continue with the same management. cc: Simeon Sin MD
--- NOTE | 2017-01-08 20:14 | PROGRESS NOTE ---
DATE: 01/08/2017 SUBJECTIVE: Patient currently resting in bed. She complains of mild abdominal discomfort and bloating. She does have a history of chronic constipation. She had an EGD and colonoscopy done. The patient complains of mild abdominal discomfort. She complains of constipation. She had been on Eliquis, which has been withheld. She has a bioprosthetic aortic valve, secondary to aortic stenosis, on chronic anticoagulation. Since admitted to the hospital, she has received 2 units of blood transfusion. They have held her Eliquis on admission. She denies any nausea, vomiting, vomiting blood. She had 1 dark stool today. She had imaging done, abdominal pelvic CT scan on 01/06/2017, which showed evidence of diverticulosis coli and constipation and cardiomegaly and nonspecific hazy infiltrate in the lung bases. Since the hospitalization, she has been feeling better. OBJECTIVE: Vital Signs: Temperature 98.2, pulse rate of 73, respiratory rate 20, blood pressure 150/62, saturating 98% on room air. Body weight of 177 pounds 3.2 ounces. BMI 29.5. General: Lying in bed, in no acute distress. HEENT: No icterus. Abdomen: Soft, nontender, nondistended. No guarding. No rebound. Extremities: No cyanosis or clubbing. Neurologic: She is alert, awake, oriented. LABORATORY STUDIES: Hemoglobin and hematocrit is 8 and 25.4. White count of 3.94. Platelet count of 285,000. MCV of 88.5. Sodium 141, potassium 3.6, chloride 102, bicarbonate 27, anion gap 12, BUN of 7, creatinine 0.7, glucose of 90. Calcium is 8.5. Total bilirubin is 0.33, AST 8, ALT less than 5, alkaline phosphatase 84, total protein 5.4, albumin 3.1. Lactate level on admission 2.4. Stool occult was positive. CT of the abdomen and pelvis described in the HPI, showing cardiomegaly and nonspecific hazy infiltrate in the lung bases, pulmonary edema, Constipation. Advanced scoliosis and degeneration. IMPRESSION AND PLAN: 1. Anemia in the setting of coagulopathy secondary to Eliquis for bioprosthetic aortic valve for aortic stenosis. Eliquis has been withheld. Her hemoglobin and hematocrit has improved after transfusion. She denies any vomiting blood or passing bright red blood in the stools. She does have intermittent dark stools, and on imaging she has evidence of constipation as well. In this regard, the patient will continue on Protonix and Carafate. We will keep her on a GI soft diet. We will keep a close eye on hemoglobin and hematocrit, and transfuse as needed. The patient was scheduled for an EGD on Tuesday morning, inpatient versus outpatient, depending on her clinical status. If hematocrit improves and is stable, maybe she can potentially be discharged home to follow up for outpatient EGD on Tuesday at [facility]. If the patient's hematocrit continues to drop, then she may have to stay inpatient to get an endoscopy done in the hospital. 2. Constipation. We will start the patient on MiraLAX once daily and Dulcolax at bedtime. 3. Dyslipidemia, being monitored by primary care team. 4. Gastrointestinal prophylaxis, as above. 5. Bowel regimen, as above. Thank you for allowing us to see this patient, Dr. Noel. cc: MD Simeon Ross MD MTDD
[2017-01-08] MEDS ORDERED: DULCOLAX PR SCH (21:00)
[2017-01-08] MEDS ORDERED: ULTRAM PO ONE (22:15)
[2017-01-09] MEDS: TYLENOL PO PRN (01:42)
[2017-01-09] MEDS: ULTRAM PO PRN (01:42)
[2017-01-09 06:29] LABS: MANUAL DIFF NEEDED? NO
[2017-01-09 06:34] LABS: BASO% 0.7 % (0.0-0.8); EOS# 0.44 X1000 (0.0-0.7); EOS% 10.2 % (0.0-10.0); HEMATOCRIT 25.9 % (37.0-47.0); HEMOGLOBIN 8.1 g/dL (12.0-16.0); IMM GRAN# 0.04 X1000 (0.0-0.04); IMM GRAN% 0.9 % (0.0-0.5); LYMPH# 1.51 X1000 (1.2-3.4); MCH 27.6 PG (27-31); MCHC 31.3 g/dL (33-37); MCV 88.1 FL (81-99); MONO# 0.57 X1000 (0.11-0.59); MONO% 13.2 % (1.7-9.3); MPV 9.6 FL (7.4-10.4); PLT 291 X1000 (130-400); RBC 2.94 XMIL (4.2-5.4)
[2017-01-09] MEDS: PROTONIX 80 MG in NS 80 ML IV SCH (06:55)
[2017-01-09] MEDS: COZAAR PO SCH (08:13)
[2017-01-09] MEDS: LACTULOSE PO SCH (08:13)
[2017-01-09] MEDS: SINEMET 25/100 PO SCH (08:13)
[2017-01-09] MEDS: KLONOPIN PO SCH (08:13)
[2017-01-09] MEDS: CYMBALTA PO SCH (08:13)
[2017-01-09] MEDS: SYNTHROID PO SCH (08:13)
[2017-01-09 09:25] VITALS: BP 169/77
--- NOTE | 2017-01-09 12:22 | CONSULTATION ---
DATE OF CONSULTATION: 01/07/2017 REASON FOR CONSULTATION: Anemia, history of melena. HISTORY OF PRESENT ILLNESS: This 86-year-old lady, who has bioprosthetic aortic valve on chronic anticoagulation with Eliquis has been having intermittent dark stools for the last several weeks. She was getting weak and presented to [facility] where she was found to have a hematocrit of 19.4. She has been admitted with intention of transfusing 2 units of blood and a consideration of endoscopy. She has had this before, and she had both upper and lower gastrointestinal bleed as well as lower GI endoscopy as well as capsule endoscopy. However, there was no source found. PAST MEDICAL HISTORY: Aortic stenosis, GERD, hypertension, hyperlipidemia, hypothyroidism. Has recurrent lower gastrointestinal bleeds. PAST SURGICAL HISTORY: Left TKA, cholecystectomy, hysterectomy, tonsillectomy, and aortic valve replacement. FAMILY HISTORY: Noncontributory. SOCIAL HISTORY: She lives at home. Does not smoke, drink, or use drugs. ALLERGIES: Sulfa. HOME MEDICATIONS: Eliquis. Rest of the medications are being obtained. REVIEW OF SYSTEMS: Other than in HPI, she denies any syncopal episodes. She does have some generalized abdominal pain. PHYSICAL EXAMINATION: Vital Signs: Temperature 97 degrees, pulse 93, respirations 18, blood pressure 101/72, saturation 97% on room air. General: An 86-year-old lady alert, answering questions, in no acute distress. HEENT: No scleral icterus. Conjunctival pallor present. Neck: Supple. Trachea is midline. Heart: Normal first and second heart sounds. There is a click. Abdomen: Soft. No significant tenderness. Bowel sounds present and normal. Extremities: No clubbing or cyanosis. Neurological: Intact. LABORATORY DATA: Hemoglobin 6, hematocrit 19.4. BUN and creatinine normal. Amylase and lipase normal. Hemoccult of the stool. CT scan shows constipation and cardiomegaly. IMPRESSION AND PLAN: 1. Occult gastrointestinal bleed previously negative workup including upper and lower endoscopy and capsule endoscopy. This appears to be subacute. We will wait until she is off Eliquis for a few days. 2. Anemia secondary to #1. Transfused 2 units and hematocrit stable. 3. Aortic stenosis with valve replacement on Eliquis. 4. Constipation. 5. Generalized weakness. RECOMMENDATION: We will watch her closely. She is on GI prophylaxis with Protonix 40 mg on drip. Given lactulose for constipation. I have talked to the family, and I will wait until at least she is off Eliquis for a few days and see if the bleeding stops. We will get an upper GI endoscopy electively. I have talked to Dr. Diaz about it. We will set it up depending on how she does over the weekend. cc: Michael Schafer MD
[2017-01-09] MEDS ORDERED: PROTONIX IV SCH ×2 (13:50→21:00)
--- NOTE | 2017-01-09 19:53 | DISCHARGE SUMMARY ---
ADMISSION DATE: 01/06/2017 DISCHARGE DATE: 01/09/2017 DISCHARGE DIAGNOSES: 1. Upper gastrointestinal bleed. 2. Normocytic anemia. 3. History of bioprosthetic aortic valve replacement. 4. Gastroesophageal reflux disease. 5. Hypertension. 6. Hypothyroidism. 7. Generalized weakness. 8. Constipation. 9. Dyslipidemia. CONSULTATIONS: Gastroenterology Department, Dr. Schafer. HOSPITAL COURSE: This is an 86-year-old female who presented to [facility] ER with complaints of generalized abdominal pain, nausea, generalized weakness and black tarry stools for the past 2 weeks that have progressively gotten worse. She denied any bright red blood in the stool or vomiting. No diarrhea or constipation. Upon arrival to the ED, she was found to have a hemoglobin of 6 and hematocrit of 19.4 and occult blood in the stool positive. CT of the abdomen showed diverticulosis, constipation and cardiomegaly. She was admitted, and she received 2 units of PRBCs. She was transferred to [facility] for evaluation. Gastroenterology was consulted, and they evaluated this patient. Her hemoglobin has been stable for the past 3 days, and they are planning on doing an upper endoscopy on Tuesday but as an outpatient. Since this patient does not have any kind of symptoms at this moment, we will discharge his patient with strict followup by her primary care doctor and Gastroenterology Department. Of note, because this patient is using Eliquis and aspirin because of her bioprosthetic aortic valve, this medication has been held, and hopefully we will restart this medication after endoscopy that will be done, as I mentioned before, next Tuesday. I personally talked to the patient, and I personally talked to the [id number] that is the one taking care of her. PHYSICAL EXAMINATION: VITAL SIGNS: Temperature is 98.3, pulse 75, respiratory rate 16, blood pressure 169/77, oxygen saturation 97% on room air. HEENT: Head is normocephalic and atraumatic. PERRLA. NECK: Supple. No JVD. No masses. Central trachea. CHEST: Clear to auscultation. No wheezing, no rales. CARDIOVASCULAR: Regular rate and rhythm. ABDOMEN: Soft. Mildly tender to palpation at the level of the epigastric area. Positive bowel sounds. Nondistended. EXTREMITIES: No edema, no clubbing, no cyanosis. NEUROLOGICAL: The patient is alert and oriented x3. No focal neurological deficits. DIAGNOSTIC DATA: WBC is 4.3, hemoglobin 8.1, hematocrit 35.9, platelets 291. DISCHARGE MEDICATIONS: Losartan 100 mg p.o. daily, hyoscyamine sulfate 0.125 mg sublingual q.6 hours, ropinirole 0.5 mg p.o. at bedtime, levothyroxine 50 mcg p.o. daily, omeprazole 40 mg p.o. daily, carbidopa/levodopa 25/100 mg tablet p.o. t.i.d., acetaminophen 500 mg p.o. q.6 hours p.r.n. pain, Klonopin 0.5 mg p.o. b.i.d., vitamin D3 5000 units p.o. daily, Cymbalta 30 mg p.o. b.i.d., Icar-C one tablet p.o. daily, simvastatin 10 mg p.o. nightly at bedtime, Mirapex 0.5 mg p.o. nightly at bedtime, Carafate 1 g p.o. 4 times a day, tramadol 50 mg p.o. b.i.d. RECOMMENDATIONS: We recommend continuing with a soft GI diet at home. She was instructed to be n.p.o. after midnight from Tuesday to Tuesday so she can be scoped on Tuesday. [facility] will [facility] here in [place] at 7:00 a.m. All instructions were written. Time discharging this patient was 35 minutes. cc: Simeon Sin MD
== END 2017-01-09 12:04 | disposition home or self-care (01) ==
LOC: P.ED 08:38 → EDIPHOLD 15:16 → SUATTDRO 15:16 → 3N 17:25
PROVIDERS: ATTEND Internal Medicine

== ENCOUNTER 2019-05-30 16:24 | Inpatient (IN) ==
[2019-05-30] MEDS ORDERED: NS 1,000 ML IV ONE ×4 (16:41→18:20)
[2019-05-30] MEDS ORDERED: ZOFRAN IV ONE (16:41)
[2019-05-30] MEDS ORDERED: ZOSYN 4.5 GM in NS 100 ML IV ONE (16:41)
[2019-05-30] MEDS ORDERED: MORPHINE IV ONE ×2 (16:41→21:03)
--- NOTE | 2019-05-30 16:58 | EKG Report ---
Test Performed on : 05/30/2019 4:46:00 PM Test Reason : AMS, abd pain, GI bleed Blood Pressure : / mmHG Vent. Rate : 083 BPM Atrial Rate : 055 BPM P-R Int : 000 ms QRS Dur : 078 ms QT Int : 330 ms P-R-T Axes : 000 020 069 degrees QTc Int : 387 ms Atrial fibrillation. Cannot rule out Anterior infarct , age undetermined Abnormal ECG When compared with ECG of 06-JAN-2017 09:04, Atrial fibrillation. has replaced Sinus rhythm. Minimal criteria for Anterior infarct are now present ST now depressed in Lateral leads Nonspecific T wave abnormality now evident in Inferior leads T wave inversion now evident in Anterior leads QT has shortened Unconfirmed Result
[2019-05-30 17:17] LABS: ALLEN TEST YES; BE -0.4 mmoll (-3.0-3.0); BLOOD TYPE ARTERIAL; HCO3-(ACT) 24.6 mmoll (20.0-26.0); METHB 1.2 % (0.0-1.5); O2(CT) 17.7 mL/dL (15.0-23.0); O2HB 94.9 % (95.0-99.0); PCO2(98.6) 48 mmHg (35-45); PO2(98.6) 104 mmHg (60-100); SAMPLE BLOOD; SAO2 98.6 % (95.0-100.0); THB 13.2 g/dL (11.5-17.4); pH(98.6) 7.34 (7.35-7.45)
[2019-05-30 17:18] LABS: MODALITY CANNULA
[2019-05-30 17:26] LABS: EOS# 0.02 X1000 (0.0-0.7); EOS% 0.2 % (0.0-10.0); HEMOGLOBIN 12.2 g/dL (12.0-16.0); IMM GRAN# 0.11 X1000 (0.0-0.04); IMM GRAN% 1.1 % (0.0-0.5); LYMPH% 27.4 % (20.5-51.1); MCHC 30.5 g/dL (33-37); MCV 91.7 FL (81-99); MONO# 1.38 X1000 (0.11-0.59); MPV 10.1 FL (7.4-10.4); NEUT# 5.45 X1000 (1.4-6.5); NEUT% 55.3 % (42.2-75.2); PLT 418 X1000 (130-400); RBC 4.36 XMIL (4.2-5.4); WBC 9.86 X1000 (4.8-10.8)
--- NOTE | 2019-05-30 17:33 | Diag Imaging Result Doc PS360 ---
EXAM: CHEST-1 VIEW 05/30/2019 HISTORY: AMS, GI bleed TECHNIQUE: AP portable at 1724 COMMENT: The inspiration is less optimal than on 05/26/2019. There is apparent atelectasis in the right lower lobe which was present previously. There is also platelike opacity in the right middle lobe which was present previously. IMPRESSION: Atelectasis Electronically signed by Ryder Jamil 05/30/2019 5:30 PM
[2019-05-30 17:54] LABS: AGAP 13; ALB/GLOB RATIO 1.3; ALBUMIN 3.2 g/dL (3.5-5.0); ALKALINE PHOSPHATASE 274 U/L (32-104); BUN 29 mg/dL (8-22); CALCIUM 10.5 mg/dL (8.8-10.2); CHLORIDE 100 mmol/L (98-107); CK PROFILE 455 U/L (24-173); COSMO 285; CREATININE 2.1 mg/dL (0.5-0.9); DIGOXIN 2.6 ng/mL (0.9-2.0); ESTIMATED GFR 22; GLUCOSE 128 mg/dL (70-104); GOT 37 U/L (10-30); GPT < 5 U/L (10-36); POTASSIUM 6.2 mmol/L (3.5-5.1); SODIUM 139 mmol/L (136-145); TCO2 26 mmol/L (25-35); TOTAL BILIRUBIN 0.71 mg/dL (0.20-1.00); TOTAL PROTEIN 5.6 g/dL (6.3-8.3)
[2019-05-30] MEDS ORDERED: ASPIRIN PO ONE (17:55)
[2019-05-30 18:08] LABS: BANDS 3 % (0-1); LYMPHS 33 % (21-51); MONO 10 % (1-9); SEGS 54 % (42-75)
[2019-05-30] MEDS ORDERED: D50W SYRINGE IV ONE (18:13)
[2019-05-30] MEDS ORDERED: HUMULIN R IV ONE (18:13)
[2019-05-30] MEDS ORDERED: CALCIUM CHLORIDE SYRINGE IV ONE (18:13)
[2019-05-30] MEDS ORDERED: LASIX IV ONE (18:13)
[2019-05-30] MEDS ORDERED: SODIUM BICARBONATE 8.4% IV ONE (18:13)
[2019-05-30] MEDS ORDERED: KAYEXALATE PO ONE (18:13)
[2019-05-30] MEDS ORDERED: ALBUTEROL NEB INH ONE (18:13)
[2019-05-30 18:16] LABS: CK INDEX 1.5 (0.0-2.5); CK-MB 6.65 ng/mL (0.0-5.0)
--- NOTE | 2019-05-30 18:38 | PROVIDER DOCUMENTATION ---
This chart was entered by Lora Rincon Scribe, acting as scribe for Nii Sexton MD. HPI-Neurological Disorder - General Stated Complaint: AMS/GIB Time Seen by Provider: 05/30/19 16:38 Source: EMS Allergies/Adverse Reactions: Patient Allergies Allergy/AdvReac Type Severity Reaction Status Date / Time Sulfa (Sulfonamide Allergy HIVES Verified 05/30/19 17:30 Antibiotics) Home Medications: Home Medication List Medication Instructions Recorded Confirmed Last Taken Type Carbidopa/Levodopa [Carbidopa-Levo 1 each PO TID 04/10/14 04/13/17 04/13/17 21:00 History 25-100 Tab] Clonazepam [Klonopin] 0.5 mg PO BID 11/17/15 04/13/17 04/13/17 21:00 History Duloxetine HCl [Cymbalta] 30 mg PO BID 11/17/15 04/13/17 04/13/17 21:00 History Omeprazole 40 mg PO DAILY 11/17/15 04/13/17 04/13/17 09:00 History SIMVAstatin [Zocor] 10 mg PO QHS 11/17/15 04/13/17 04/13/17 21:00 History Iron Carbonyl/Vit C/Vit B12/FA 1 each PO DAILY #30 tablet 11/18/15 04/13/17 0805/25 09:00 Rx [Icar-C Plus] Acetaminophen [Tylenol Extra 500 mg PO Q6H PRN PRN 04/29/16 04/13/17 01/06/17 09:00 History Strength] Cholecalciferol (Vitamin D3) 5,000 unit PO DAILY 04/29/16 04/13/17 04/13/17 09:00 History [Vitamin D3] Pramipexole [Mirapex] 0.5 mg PO QHS 04/29/16 04/13/17 04/13/17 21:00 History Sucralfate [Carafate] 1 gm PO 4XDAY 04/29/16 04/13/17 04/13/17 21:00 History Tramadol HCl [Ultram] 50 mg PO BID 04/29/16 04/13/17 04/13/17 21:00 History Hyoscyamine Sulfate 0.125 mg SL Q6HR 09/05/2504/13/17 01/06/17 07:00 History Levothyroxine Sodium 50 mcg PO DAILY 01/07/17 04/13/17 01/06/17 09:00 History Losartan Potassium 100 mg PO DAILY 01/07/17 04/13/17 01/06/17 09:00 History Ropinirole HCl 0.5 mg PO HS 01/07/17 04/13/17 04/13/17 21:00 History Apixaban [Eliquis] 5 mg PO BID 04/13/17 04/13/17 04/13/17 21:00 History Nitrofurantoin Macrocrystal 100 mg PO BID 04/13/17 04/13/17 04/13/17 21:00 History [Nitrofurantoin] Ranitidine [Zantac] 300 mg PO DAILY 04/13/17 04/13/17 04/13/17 09:00 History - History of Present Illness-Neuro Nature of Presenting Problem: Patient is a 88 year old female who presents to the ED via EMS with altered mental status. EMS states patient's family reported a decrease in responsiveness. EMS reports patient's daughter stated patient has had rectal bleeding. History of dementia and GI bleeds. EMS states patient's FSBS was 47 on their arrival. Severity: reports: mild Onset/Duration: reports: unsure Timing: reports: still present Context: reports: other (AMS) Character of Altered Mental Status: reports: decreased responsiveness Associated Symptoms: reports: other (rectal bleeding) Similar Symptoms Previously?: No Recently seen or treated by another doctor?: No Review of Systems - Adult - REVIEW OF SYSTEMS - ADULT ROS:: unobtainable per condition Constitutional: reports: no symptoms reported Eyes: reports: no symptoms reported Ears, Nose, Mouth & Throat: reports: no symptoms reported Cardiovascular: reports: no symptoms reported Respiratory: reports: no symptoms reported Gastrointestinal: reports: no symptoms reported Genitourinary: reports: no symptoms reported Musculoskeletal: reports: no symptoms reported Integumentary: reports: no symptoms reported Neurological: reports: no symptoms reported Psychiatric: reports: no symptoms reported Endocrine: reports: no symptoms reported Hematologic/Lymphatic: reports: no symptoms reported Allergic/Immunologic: reports: no symptoms reported All Other Systems: Reviewed and Negative Past History - Adult - PAST MEDICAL HISTORY-ADULT Review of Records: reports: Old Records Reviewed, Nursing Assessment Review, Medications Reviewed, Social history reviewed & non-contributory. Major Childhood Illnesses: reports: denies history Cardiovascular: reports: CHF, HTN, heart valve problem (aortic valve replacement ) Respiratory: reports: denies history Gastrointestinal: reports: cancer (colon), GERD Obstetrical/Gynecological: reports: denies history Genitourinary: reports: denies history Musculoskeletal: reports: denies history Neurological: reports: dementia Psychiatric: reports: anxiety, bipolar Endocrine/Immune: reports: thyroid disorder Other Conditions: reports: denies history - PRIOR SURGERIES/PROCEDURES Surgical/Procedure History: reports: reviewed, not pertinent, cholecystectomy, orthopedic (extremity) (left foot Sx), back/neck (back Sx), other (heart valve replaced in 2012) - PRIOR HOSPITALIZATIONS Prior Hospitalizations: reports: none - IMMUNIZATION STATUS Childhood Immunizations: See Nurse Assessment Flu Vaccine: UTD - FAMILY HISTORY Family History: reviewed, not pertinent - SOCIAL HISTORY Smoking: cigarettes (former) Substance Use: denies Physical Exam- Neurological - Physical Exam-Neuro Initial Vital Signs Reviewed: Yes General Appearance: no apparent distress, lethargic, other (arousable). negative: obtunded HENMT: normocephalic/atraumatic, other (dry mucous membranes). negative: angioedema Head Injury: no evidence of injury. negative: active bleeding Respiratory: chest non-tender, lungs clear, increased rate. negative: rhonchi Cardiovascular: systolic murmur (2/6 systolic murmur heard best at the apex), irregularly irregular. negative: tachycardia Abdominal Exam: abnormal bowel sounds (hypoactive), guarding, rebound (questionable), tenderness (generalized) Extremity: non-tender, normal inspection. negative: pedal edema geophysical observer Exam: other (unable to assess per patient's condition) Coordination/Gait: other (unable to assess per patient's condition) Motor/Sensory: other (unable to assess per patient's condition) Neurologic: other (unable to assess per patient's condition) Integumentary: normal color, warm/dry, other (poor skin turgor). negative: diaphoresis, pallor Psych/Mental Status: other (lethargic. oriented to person. disoriented to place and time.) Progress - PLAN OF CARE/RESULTS Progress/Plan/Lab Results: Vital Signs - 8 hr 05/30/19 16:55 05/30/19 17:32 Temperature 99.1 F Pulse Rate 83 91 H Respiratory Rate 25 H 20 Blood Pressure 88/65 119/58 O2 Sat by Pulse Oximetry 88 L 91 L Laboratory Results - last 24 hr 05/30/19 05/30/19 05/30/19 16:39 17:00 17:00 WBC 9.86 RBC 4.36 Hgb 12.2 Hct 40.0 MCV 91.7 MCH 28.0 MCHC 30.5 L RDW Std Deviation 16.0 H Plt Count 418 H MPV 10.1 Immature Gran % (Auto) 1.1 H Neut % (Auto) 55.3 Lymph % (Auto) 27.4 Sanborn % (Auto) 14.0 H Eos % (Auto) 0.2 Baso % (Auto) 2.0 H Immature Gran # (Auto) 0.11 H Neut # (Auto) 5.45 Lymph # (Auto) 2.70 Sanborn # (Auto) 1.38 H Eos # (Auto) 0.02 Baso # (Auto) 0.20 Segmented Neutrophils 54 Band Neutrophils 3 H Lymphocytes 33 Monocytes 10 H PT INR Specimen Type Sample Site pH pCO2 pO2 HCO3 Base Excess Oxyhemoglobin ABG O2 Sat (Calculated) ABG O2 Saturation ABG Carboxyhemoglobin ABG Methemoglobin Jason Test A-a O2 Difference Total Hemoglobin Lactate Liter Flow Blood Gas Modality FiO2 % Sodium 139 Potassium 6.2 H* Chloride 100 Carbon Dioxide 26 Anion Gap 13 BUN 29 H Creatinine 2.1 H Estimated GFR/1.73 m2 22 BUN/Creatinine Ratio 14 Glucose 128 H POC Glucose 109 H Calculated Osmolality 285 Calcium 10.5 H Total Bilirubin 0.71 AST 37 H ALT < 5 L Alkaline Phosphatase 274 H Creatine Kinase 455 H Creatine Kinase Index 1.5 CK-MB (CK-2) 6.65 H Troponin T High Sens [id number] Pept Total Protein 5.6 L Albumin 3.2 L Globulin 2.4 Albumin/Globulin Ratio 1.3 Urine Source Digoxin 2.6 H Blood Type Antibody Screen 05/30/19 05/30/19 05/30/19 17:00 17:00 17:00 WBC RBC Hgb Hct MCV MCH MCHC RDW Std Deviation Plt Count MPV Immature Gran % (Auto) Neut % (Auto) Lymph % (Auto) Sanborn % (Auto) Eos % (Auto) Baso % (Auto) Immature Gran # (Auto) Neut # (Auto) Lymph # (Auto) Sanborn # (Auto) Eos # (Auto) Baso # (Auto) Segmented Neutrophils Band Neutrophils Lymphocytes Monocytes PT 19.1 H INR 1.57 Specimen Type Sample Site pH pCO2 pO2 HCO3 Base Excess Oxyhemoglobin ABG O2 Sat (Calculated) ABG O2 Saturation ABG Carboxyhemoglobin ABG Methemoglobin Jason Test A-a O2 Difference Total Hemoglobin Lactate Liter Flow Blood Gas Modality FiO2 % Sodium Potassium Chloride Carbon Dioxide Anion Gap BUN Creatinine Estimated GFR/1.73 m2 BUN/Creatinine Ratio Glucose POC Glucose Calculated Osmolality Calcium Total Bilirubin AST ALT Alkaline Phosphatase Creatine Kinase Creatine Kinase Index CK-MB (CK-2) Troponin T High Sens 538 H* Xxs-B-Awqmxowxaga Pept Total Protein Albumin Globulin Albumin/Globulin Ratio Urine Source Digoxin Blood Type A POSITIVE Antibody Screen NEGATIVE 05/30/19 05/30/19 05/30/19 17:00 17:10 18:30 WBC RBC Hgb Hct MCV MCH MCHC RDW Std Deviation Plt Count MPV Immature Gran % (Auto) Neut % (Auto) Lymph % (Auto) Sanborn % (Auto) Eos % (Auto) Baso % (Auto) Immature Gran # (Auto) Neut # (Auto) Lymph # (Auto) Sanborn # (Auto) Eos # (Auto) Baso # (Auto) Segmented Neutrophils Band Neutrophils Lymphocytes Monocytes PT INR Specimen Type ARTERIAL Sample Site R BRACHIAL pH 7.34 L pCO2 48 H pO2 104 H HCO3 24.6 Base Excess -0.4 Oxyhemoglobin 94.9 L ABG O2 Sat (Calculated) 17.7 ABG O2 Saturation 98.6 ABG Carboxyhemoglobin 2.60 H ABG Methemoglobin 1.2 Jason Test YES A-a O2 Difference 150.0 Total Hemoglobin 13.2 Lactate 1.40 Liter Flow 6.0 Blood Gas Modality CANNULA FiO2 % 44.0 Sodium Potassium Chloride Carbon Dioxide Anion Gap BUN Creatinine Estimated GFR/1.73 m2 BUN/Creatinine Ratio Glucose POC Glucose Calculated Osmolality Calcium Total Bilirubin AST ALT Alkaline Phosphatase Creatine Kinase Creatine Kinase Index CK-MB (CK-2) Troponin T High Sens [id number]-Hzxbkwpqaiv Pept 38724 H Total Protein Albumin Globulin Albumin/Globulin Ratio Urine Source CATH Digoxin Blood Type Antibody Screen Orders Category Date Time Status Cardiac Monitoring DIRECTED Care 05/30/19 16:39 Active Finger Stick Blood Sugar (ED) DIRECTED Care 05/30/19 16:41 Active Butt Cath Insertion ORDERED Care 05/30/19 16:43 Active IV Insertion ORDERED Care 05/30/19 16:39 Completed Insert Rectal Tube ORDERED Care 05/30/19 17:55 Active Notify Physician As Ordered Care 05/30/19 16:39 Active Nursing- Obtain EKG once Care 05/30/19 16:40 Active Resuscitation Status Routine Care 05/30/19 17:48 Ordered NPO Diet 05/30/19 16:41 Active CHEST-1 VIEW [RAD] Stat Exams 05/30/19 16:[address] ABD/PELVIS W/IV CONT ONLY [CT] Stat Exams 05/30/19 16:42 Ordered ABG [RESP] Routine Lab 05/30/19 17:10 Completed BLOOD CULTURE [BLDCUL] Stat Lab 05/30/19 17:00 Ordered C DIFF TOXIN [STOOL] Stat Lab 05/30/19 18:30 Received CBC WITH DIFF [HEME] Stat Lab 05/30/19 17:00 Completed CK PROFILE [SP CHEM] Stat Lab 05/30/19 17:00 Completed COMPREHENSIVE METABOLIC PANEL [CHEM] Stat Lab 05/30/19 17:00 Completed DIGOXIN [TDM] Stat Lab 05/30/19 17:00 Completed LACTATE, PLASMA [CHEM] Q3H Lab 05/30/19 17:00 Received LACTATE, PLASMA [CHEM] Q3H Lab 05/30/19 19:45 Uncollected LACTATE, PLASMA [CHEM] Q3H Lab 05/30/19 22:45 Uncollected OCCULT BLOOD SCREENING [STOOL] Stat Lab 05/30/19 18:30 Received PRO B-NATRIURETIC PEPTIDE Stat Lab 05/30/19 17:00 Completed PROTIME WITH INR [COAG] Stat Lab 05/30/19 17:00 Results PTT [COAG] Stat Lab 05/30/19 17:00 Results STOOL CULTURE [RM] Routine Lab 05/30/19 18:30 Received TROPONIN T HIGH SENSITIVITY Stat Lab 05/30/19 17:00 Completed TYPE & SCREEN [BBK] Stat Lab 05/30/19 17:00 Completed URINALYSIS W/POSS RFLX CULT [URINALYSIS] Stat Lab 05/30/19 18:30 Results 0.9% Sodium Chloride Inj [Ns] 1,000 ml Med 05/30/19 16:41 Discontinued IV 999 mls/hr 0.9% Sodium Chloride Inj [Ns] 1,000 ml Med 05/30/19 16:41 Discontinued IV 999 mls/hr 0.9% Sodium Chloride Inj [Ns] 1,000 ml Med 05/30/19 18:20 Active IV 999 mls/hr 0.9% Sodium Chloride Inj [Ns] 1,000 ml Med 05/30/19 18:20 Active IV 999 mls/hr Albuterol [Albuterol Neb] Med 05/30/19 18:13 Discontinued 2.5 mg INH NOW ONE Aspirin Med 05/30/19 17:55 Discontinued 325 mg PO NOW ONE Calcium Chloride Syringe Med 05/30/19 18:13 Discontinued 1 gm IV NOW ONE Dextrose 50% Syringe [D50w Syringe] Med 05/30/19 18:13 Discontinued 50 ml IV NOW ONE Furosemide [Lasix] Med 05/30/19 18:13 Discontinued 20 mg IV NOW ONE Insulin Human Regular [Humulin R] Med 05/30/19 18:13 Discontinued 5 unit IV NOW ONE Morphine Med 05/30/19 16:41 Discontinued 2 mg IV NOW ONE Ondansetron [Zofran] Med 05/30/19 16:41 Discontinued 4 mg IV NOW ONE Piperacillin/Tazobactam [Zosyn] 4.5 gm Med 05/30/19 16:41 Discontinued 0.9% Sodium Chloride Inj [Ns] 100 ml IV NOW Sodium Bicarbonate 8.4% Med 05/30/19 18:13 Discontinued 50 meq IV NOW ONE Sodium Polystyrene [Kayexalate] Med 05/30/19 18:13 Discontinued 30 gm PO NOW ONE Aerosol Treatments Routine Oth 05/30/19 18:14 Active Aerosol Treatments Stat Oth 05/30/19 18:14 Active Oxygen Device Stat Oth 05/30/19 16:39 Active EKG [EKG] Stat Ther 05/30/19 16:40 Draft Result Diagrams: 05/30/19 17:00 05/30/19 17:00 - REASSESSMENT Reassessment #1 Time Reassessed: 17:49 Status: other (Dr. Sexton consulted with patient's family about patient's DNR status. Patient's family states patient is DNR level 1.) Reassessment #2 Time Reassessed: 18:34 Status: improving (BP stabilized with fluids. Rectal tube needed to be inserted for copious diarrheal stools - brown mixed with bright red blood. Multiple meds ordered for hyperkalemia) - EKG 1 Time of EKG reading by physician:: 16:46 EKG Read and Signed by:: Nii Sexton EKG Interpretation (*Must complete 3 of following elements*): Abnormal (NSSTTWC; artifact present.) Rate: 83 Rhythm: A fib rate controlled Steedman: normal Comments: cannot rule out anterior infarct, age undetermined; - CONSULTS/PCP/HOSPITALIST Notification #1 *Consult/PCP/Hospitalist*: Cinthiapily Alicia paged at [phone] (patient is a CESAR Eubanks, not Henry Bryson Time Discussed: 18:47 Consult Disposition: Will see in ED, Admit - CHANGE OF SHIFT REPORT (ED Provider) 1 Report Given and Care Transferred to:: Bernice Time of Transfer: 19:00 Items Pending: Physician Consult/Arrival Departure - Departure Date of Disposition Decision: 05/30/19 Time of Disposition Decision: 18:47 DIAGNOSIS: Diarrhea of presumed infectious origin, DNR (do not resuscitate), Acute kidney injury (nontraumatic), Hyperkalemia, Troponin level elevated GI bleeding Qualifiers: GI bleed type/associated pathology: unspecified gastrointestinal hemorrhage type Qualified Code(s): K92.2 - Gastrointestinal hemorrhage, unspecified Altered mental status, unspecified Qualifiers: Altered mental status type: stupor Qualified Code(s): R40.1 - Stupor Hypotension Qualifiers: Hypotension type: other hypotension type Qualified Code(s): I95.89 - Other hypotension Sepsis Qualifiers: Sepsis type: sepsis due to unspecified organism Sepsis acute organ dysfunction status: with acute organ dysfunction Severe sepsis acute organ dysfunction type: acute renal failure Acute renal failure type: unspecified Severe sepsis shock status: without septic shock Qualified Code(s): A41.9 - Sepsis, unspecified organism; R65.20 - Severe sepsis without septic shock; N17.9 - Acute kidney failure, unspecified Disposition: ADMITTED INPATIENT 09 Certified Medical Emergency: Emergent Condition: Serious Referrals and Follow-Ups: Henry Eubanks MD [Primary Care Provider] - - Critical Care Note This patient required my direct & personal management of CC.: Yes Total Time (mins): 50 Critical Care Statement: This patient required my direct personal management to treat or rule out processes, the absence of which, could potentiallly result in sudden, clinically significant life or limb threatening deterioration. Attestation - Physician/ KENNY Attestation Patient care was provided by Advanced Practice Provider:: No The physician spent face to face time with patient:: Yes Advanced Practice Provider documentation review:: Supervising physician onsite and consulted in the evaluation and care of this patient. The physician did have a face to face encounter with the patient. This chart was documented by the indicated scribe, (Lora Rincon Scribe) and accurately reflects the services I performed and decisions made by me, Nii Sexton MD, as attested by the provider's signature.
[2019-05-30 18:45] LABS: URINE SOURCE CATH
[2019-05-30 18:51] LABS: BILIRUBIN URINE NEGATIVE (NEGATIVE); BLOOD URINE NEGATIVE (NEGATIVE); COLOR YELLOW; GLUCOSE URINE NEGATIVE (NEGATIVE); KETONE URINE NEGATIVE (NEGATIVE); LEUKOCYTES URINE TRACE (NEGATIVE); NITRITE URINE NEGATIVE (NEGATIVE); PH URINE 5.5; PROTEIN URINE 30 mg/dL (NEGATIVE); SP GRAVITY URINE 1.026; TURBIDITY URINE CLEAR (CLEAR); UR EPITHELIAL CELLS <10 /HPF (<10); URINE BACTERIA NEGATIVE /HPF; URINE RBC <10 /HPF (<10); UROBILINOGEN URINE 2 mg/dL (NORMAL)
[2019-05-30 19:17] LABS: INR 1.76; PROTIME 20.9 Seconds (11.0-16.0)
[2019-05-30 19:25] LABS: PTT 151.9 Seconds (22.3-41.8)
[2019-05-30] MEDS ORDERED: VITAMIN K 10 MG in NS 50 ML IV ONE (20:26)
[2019-05-30] MEDS ORDERED: ZOFRAN IV PRN (20:48)
[2019-05-30] MEDS ORDERED: NS 1,000 ML IV SCH (20:48)
[2019-05-30] MEDS ORDERED: TYLENOL PO PRN (20:48)
--- NOTE | 2019-05-30 22:04 | HISTORY AND PHYSICAL ---
REASON FOR ADMISSION: Rectal bleed and unresponsiveness. HISTORY OF PRESENT ILLNESS: Ms. Weller is an 88-year-old woman with a significant past medical history of dementia, recurrent GI bleeds, aortic stenosis, hypertension, hyperlipidemia and hypothyroidism. The daughter tells me she has had prior multiple GI bleeds in the past, and they have been unsuccessful in telling the patient or the family where the bleeds are emanating from. Today, the patient started screaming and was more confused than usual, talking to her parents and . The [id number] who is at bedside says this is not entirely unusual for her, but today this was more out of the ordinary. She went to check on the patient and noticed that the patient's started complaining to her that her stomach was hurting her, and she noticed that the patient was very confused, very weak and drowsy. The patient then was assisted to the bathroom and subsequently had hematochezia. At that juncture, she brought the patient to the ER. On arrival to the ER, the nurse at bedside informed her that her mother passed no less than 3 points of bright red blood. It slowed down a bit, but the patient has now become very lethargic, weak and barely responsive, only to sternal rub. I have been informed by the [id number]-pvt, who is here on behalf of the patient's son who is the primary caregiver, that they want to make the patient a DO NOT RESUSCITATE patient, including no pressors. I asked the why the son is not there, and it is because the son has severe Parkinson's and is unable to transport out of the house. Unfortunately, I am unable to get any history from the patient due to her current cognitive state and her sensorium. REVIEW OF SYSTEMS: According to the [id number], the patient is not on any blood thinners to cause this degree of bleeding. PRIMARY CARE PHYSICIAN: JON Mora. SURGICAL HISTORY: Per old records, left TKA, cholecystectomy, hysterectomy, tonsillectomy. FAMILY HISTORY: According to the , nobody with GI bleeding disorders or bleeding diathesis. Positive for carotid disease and Parkinson's in first-degree relatives. SOCIAL HISTORY: Does not smoke, drink, or use drugs. Lives with her son and [id number]. ALLERGIES: Sulfa. HOME MEDICATIONS: Have not been reconciled. LABORATORY WORK: White count 9000, hemoglobin and hematocrit 12 and 40, platelets 418 with normal differential, but she does have 3% bands. PT is 21, INR 1.7. PTT is 151.9. Blood pH is 7.34, pCO2 is 48, PO2 is 104. This is on 6 L nasal cannula. Potassium is 6.2, chloride is 100, carbon dioxide 26. Anion gap is 13, BUN is 21, creatinine 2.1. Her baseline creatinine as of this year, 4 days ago, was 0.8. Calcium 10.4. AST 37, ALT undetected, alkaline phosphatase 274. CK 455, proBNP 23,000, troponin 538. Urinalysis: Trace WBCs. Digoxin level 2.6. Chest film: No atelectasis noted. EKG showed atrial fibrillation with RVR, ST depression in lateral leads. Nonspecific ST-wave changes and short QT interval. PHYSICAL EXAMINATION: VITAL SIGNS: Blood pressure is 71/47, heart rate 87, respirations 19, temperature 98.2. She is 87% on Venturi mask 50%. GENERAL: She is a pallid, elderly woman who is tachypneic, using accessory muscles. She is very lethargic and barely responsive except to sternal rub. HEENT: Head is normocephalic, atraumatic. Eyes: Pupils are reactive, but she has very pale conjunctiva. ENT and oral exam: Pale lips, but I did not examine the cavity. NECK: Supple. No JVD or carotid bruit. CHEST: Clear with good air entry in both lung mccracken. CARDIOVASCULAR: First and second sounds heard. No gallops, murmurs, rubs. Rhythm is irregular. ABDOMEN: Full, soft, but diffusely tender, as per patient grimacing. No rebound noted. Bowel sounds are hypoactive. RECTAL EXAM: Deferred. EXTREMITIES: Patient has cyanotic digits of hands and feet. Pulses are not palpable. No edema, clubbing, or peripheral cyanosis. NERVOUS SYSTEM: The patient is obtunded, but to sternal rub moves her upper extremities, and spontaneously moves her legs. SKIN: Patient is pallid diffusely. Her turgor is slightly diminished. MUSCULOSKELETAL EXAM: Grossly unremarkable. ASSESSMENT: 1. Hemorrhagic shock secondary to gastrointestinal bleed. Gastrointestinal bleed etiology yet to be determined. 2. Aortic stenosis. 3. Coagulopathy. 4. Acute kidney injury. 5. Hyperkalemia secondary to acute kidney injury. 6. Acute respiratory failure, etiology yet to be determined. PLAN: The patient's family wants to make her a DO NOT RESUSCITATE level 1. Ideally she would have been started on pressors and other blood products, but family does not want to proceed this way because they know that one, her prognosis is very poor, which is very obvious. Two, it is very likely that she may require surgical intervention, which would require us to do a CT scan. Attempts were made to transport her to CT scan, but she is totally dependent on crystalloids, and her blood pressure is barely able to hold even with boluses. Family is fully aware that the patient is probably going to pass in a couple of hours. Our goal at this point in time is to keep her alive so her family members from [place] can see her and say their farewells. 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 The patient's elevated PTT makes me suspect this, especially not being on any anticoagulation. The fact that she has bleeding of unknown etiology, according to the [id number]-[id number]-xln, makes me think that she may have had angiodysplasias probably in the small bowel which may have caused spontaneous bleeding in the face of von Willebrand's disease. Whether this patient has this or not is irrelevant, because the patient's demise is imminent and will not change anything at this point in time. If this patient was not demented and had good quality of life, an attempt to replace her aortic valve may have probably helped indirectly correct the bleeding. For now, the patient will be given some FFPs to slow down the coagulopathy and given vitamin K with the hope that this may slow down the bleeding so that she is less dependent on crystalloids given to her at this point in time. The primary goal, as stated earlier, is to keep the patient alive for the family to see her before she passes on. TIME SPENT: Critical care time with this patient was 38 minutes. cc: MD Mariana Ayala CRNP MTDD
[2019-05-30 22:15] VITALS: BP 64/32
[2019-05-30] MEDS ORDERED: MORPHINE IV PRN (23:10)
[2019-05-30] MEDS ORDERED: DURAGESIC 12 MICROGM/HR PATCH TD ONE (23:10)
[2019-05-30] MEDS ORDERED: ATIVAN IV PRN (23:10)
[2019-05-30] MEDS ORDERED: DUONEB (A & A) INH PRN (23:11)
[2019-05-30] MEDS ORDERED: TRANSDERM-SCOP TD ONE (23:12)
--- NOTE | 2019-05-31 00:26 | DISCHARGE SUMMARY ---
ADMISSION DATE: 05/30/2019 DISCHARGE DATE: 05/30/2019 FINAL DIAGNOSES: 1. Hemorrhagic shock secondary to gastrointestinal bleed. 2. Coagulopathy, probably secondary to disseminated intravascular coagulation versus acquired von Willebrand's disease. 3. Aortic stenosis. 4. Acute kidney injury secondary to blood loss. 5. Hyperkalemia secondary to kidney failure. HOSPITAL COURSE: The patient was admitted to the floor and a few hours later the patient quietly while undergoing comfort measures. The patient was pronounced at 11:22. The family at bedside were notified. cc: MD Henry Ayala MD
== END 2019-05-30 23:22 | disposition expired | DRG 871 ==
LOC: SUPCPDRO → ED 16:24 → 3N 21:23
PROVIDERS: ADMIT Family Medicine; ATTEND Internal Medicine